=== PATIENT | female | born 1985 ===

== ENCOUNTER 2021-11-12 11:15 | Emergency (ER) | payer OTHER ==
[~2021-11-12] VITALS: Ht 175.3 cm; Wt 63.5 kg
[2021-11-12 11:48] LABS: *URINE HCG, QUAL NEG (NEGATIVE)
[2021-11-12 11:49] LABS: *BILIRUBIN,URIN NEGATIVE (NEGATIVE); *CLARITY,URINE CLEAR (CLEAR); *COLOR,URINE YELLOW (YELLOW); *KETONES,URINE NEGATIVE (NEGATIVE); *UROBILINOGEN,URINE 0.2 E.U./dl (NORMAL); LEUKOCYTE ESTERASE ,URINE NEGATIVE (NEGATIVE); NITRITE, URINE NEGATIVE (NEGATIVE); UGLUCOSE NEGATIVE (NEGATIVE)
[2021-11-12 11:55] LABS: *BLOOD, URINE TRACE (NEGATIVE)
--- NOTE | 2021-11-12 11:55 | NUR ---
MD at bedside, medical screening exam in progress.
[2021-11-12] MEDS ORDERED: IBUPROFEN 800 MG TABLET ONE (12:12)
[2021-11-12] MEDS ORDERED: IBUPROFEN 800 MG TABLET PO ONE (12:15)
[2021-11-12] MEDS ORDERED: HYDR25SU33 RC (13:20)
[2021-11-12] MEDS ORDERED: IBUP-1955 PO (13:20)
--- NOTE | 2021-11-12 13:32 | NUR ---
Patient discharged to home in stable condition. Written and verbal after care instructions given. Patient verbalizes understanding of instructions. Stressed follow up or return to ER for worsening s/s.
[2021-11-12 13:33] VITALS: BP 125/70
[2021-11-12 14:18] LABS: BACTERIA,URINE FEW /HPF (NONE SEEN); RBC,URINE 0-3 /HPF (0-3); SQUAMOUS EPITHELIAL CELL,UR FEW /HPF (NONE SEEN); WBC,URINE 0-3 /HPF (0-3)
== END 2021-11-12 13:35 | disposition home or self-care (01) ==
LOC: ER 11:30
DX: M54.41 Lumbago with sciatica, right side (principal); K64.9 Unspecified hemorrhoids; R30.0 Dysuria
CPT/HCPCS: 84703; A4663